=== PATIENT | female | born 1940 | race Caucasian/White ===

== ENCOUNTER → 2016-11-05 | Outpatient (CLI) | payer OTHER, BC | LOC: FIMAGING 11:59 | PROVIDERS: ATTEND Family Medicine | DX: R05 Cough (principal) ==

== ENCOUNTER → 2016-12-18 | Outpatient (CLI) | payer OTHER, BC | LOC: BMCIMAGING 14:56 | PROVIDERS: ATTEND Family Medicine | DX: Z12.31 Encounter for screening mammogram for malignant neoplasm of breast (principal) | CPT/HCPCS: G0202 ==

== ENCOUNTER → 2017-02-08 | Outpatient (CLI) | payer OTHER, BC | LOC: FIMAGING 13:13 | PROVIDERS: ATTEND Family Medicine | DX: Z13.820 Encounter for screening for osteoporosis (principal); M85.80 Other specified disorders of bone density and structure, unspecified site ==

== ENCOUNTER → 2018-01-15 | Outpatient (CLI) | payer OTHER, BC | LOC: BMCIMAGING 13:23 | PROVIDERS: ATTEND Family Medicine | DX: Z12.31 Encounter for screening mammogram for malignant neoplasm of breast (principal) ==

== ENCOUNTER 2018-07-06 14:04 | Emergency (ER) | payer OTHER, BC ==
--- NOTE | 2018-07-06 15:09 | EDPHY ---
H & P Stated Complaint: tripped on stair hitting face on cement- denies LOC Time Seen by Provider: 07/06/18 14:09 HPI/ROS: CHIEF COMPLAINT: Fall HISTORY OF PRESENT ILLNESS: 78-year-old female presents emergency department after mechanical trip and fall. She was leaving [place] with friends when she missed a step and fell landing on her face. No loss of consciousness. No chest pain or shortness of breath. No back pain. No numbness or tingling in arms or legs. Patient is complaining of an abrasion with laceration on her upper lip, pain at her right wrist, abrasion over her right knee and pain at her left ankle. Patient was otherwise well prior to the event. Patient is not anticoagulated. Patient did a yoga class this morning went for a walk prior to [place]. REVIEW OF SYSTEMS: A comprehensive 10 system review of systems was reviewed and is otherwise negative aside from elements mentioned in the history of present illness and medical decision making. PAST MEDICAL HISTORY: Takes atorvastatin for cholesterol. SOCIAL HISTORY: Here with a friend. . is on his way in. VITAL SIGNS: Reviewed by me; see NN. GENERAL: Well-developed, well-nourished, in no acute distress. HEENT: Head: Atraumatic, normocephalic. Face: 1 cm vertical laceration over the columella with abrasion to the upper lip. Abrasion on the lower lip in the midline. PERRL, EOMI, no nystagmus. Oropharynx: No intraoral trauma. No through and through lacerations. No dental trauma. No loose teeth. Occlusion is normal. Neck: Nontender to palpation, no pain with range of motion, no adenopathy. CHEST: Nontender, no subcutaneous air palpable. LUNGS: Clear to auscultation bilaterally, breath sounds are equal. CARDIAC: Regular rate and rhythm, no rubs, murmurs or gallops. ABDOMEN: Soft, nontender, nondistended, bowel sounds normal. BACK: No CVA tenderness, no spinal tenderness. EXTREMITIES: Abrasion at the right knee with full range of motion and no deformity or effusion. Right wrist: Ecchymosis, hematoma, and tenderness over the ulnar aspect of the right wrist, dorsal surface. Good range of motion. Neurovascularly intact. Left ankle: Ecchymosis and hematoma present just distal to the talus along the lateral aspect of the foot. No tenderness over the head of the 5th metatarsal. No tenderness at the medial or lateral malleoli. Neurovascularly intact. PULSES: 2+ and equal throughout. NEURO: Alert and oriented x3, cranial nerves are intact throughout, normal motor , normal sensation. SKIN: Warm and dry, no rash. - Personal History Current Tetanus Diphtheria and Acellular Pertussis (TDAP): Yes Tetanus Vaccine Date: 2011 - Medical/Surgical History Hx Asthma: No Hx Chronic Respiratory Disease: No Hx Diabetes: No Hx Cardiac Disease: No Hx Renal Disease: No Hx Cirrhosis: No Hx Alcoholism: No Hx HIV/AIDS: No Hx Splenectomy or Spleen Trauma: No Other PMH: atrial septum repair; chemo for t cell lymphoma 2010; steroids 6 weeks during 2010; stem cell transplant 2010 - Social History Smoking Status: Never smoked Constitutional: Initial Vital Signs Temperature (C) 36.6 C 07/06/18 14:12 Heart Rate 78 07/06/18 14:12 Respiratory Rate 18 07/06/18 14:12 Blood Pressure 154/81 H 07/06/18 14:12 O2 Sat (%) 97 07/06/18 14:12 O2 Delivery Mode Room Air Allergies/Adverse Reactions: ibuprofen [From Advil] Allergy (Severe, Verified 06/09/15 12:22) BLISTERS INSIDE ELBOWS/BEHIND KNEES Sulfa (Sulfonamide Antibiotics) Allergy (Severe, Verified 06/09/15 12:22) DIFFICULT BREATHING nitrofurantoin [Nitrofurantoin] Allergy (Unknown, Verified 06/09/15 12:22) MOUTH ITCHING Penicillins Allergy (Unknown, Verified 06/09/15 12:22) Hives meropenem [Meropenem] Allergy (Verified 06/09/15 12:22) CLINDAMYCIN HCL Allergy (Severe, Uncoded 06/09/15 12:22) HIVES/BLISTERS INSIDE JOINTS Home Medications: Medication Instructions Recorded Cholecalciferol Vit D3 [Vitamin D] 1,000 units PO DAILY 06/09/15 Aspirin [Aspirin 81mg (*)] 81 mg PO DAILY #30 tab 06/10/15 Atorvastatin Calcium [Lipitor] 10 mg PO DAILY #30 tab 06/10/15 Medical Decision Making - Diagnostics Imaging Results: Imaging Impressions Foot X-Ray 07/06/18 00:00 Impression: 1. There is a linear avulsion fracture off the lateral hindfoot with adjacent soft tissue swelling. 2. Dorsal chip fracture along the distal talus at the anterior capsular insertion point. LEFT FOOT (3 Views), at 2:36 PM: Again noted is the avulsion fracture off the lateral hindfoot, seen to best advantage on the first image acquired. There is also a tiny chip fracture along the talus at the anterior capsular insertion point. There is a probable unfused os tibiale externum along the medial aspect of the navicular. There is a hallux valgus configuration with degenerative osteoarthrosis consisting of joint space narrowing and some osteophyte formation. The tarsometatarsal alignment is anatomic. There is mild pes cavum. Impression: 1. There is a tiny avulsion fracture off the lateral hindfoot with associated soft tissue swelling. 2. Dorsal chip fracture along the distal talus, at the anterior capsular insertion point. Wrist X-Ray 07/06/18 14:27 Impression: Query nondisplaced dorsal triquetral fracture. Clinical correlation is suggested. If there is a high clinical concern regarding an occult fracture elsewhere, conservative management and short-term repeat radiographic follow-up in 7-14 days could be considered. Ankle X-Ray 07/06/18 14:28 Impression: 1. There is a linear avulsion fracture off the lateral hindfoot with adjacent soft tissue swelling. 2. Dorsal chip fracture along the distal talus at the anterior capsular insertion point. LEFT FOOT (3 Views), at 2:36 PM: Again noted is the avulsion fracture off the lateral hindfoot, seen to best advantage on the first image acquired. There is also a tiny chip fracture along the talus at the anterior capsular insertion point. There is a probable unfused os tibiale externum along the medial aspect of the navicular. There is a hallux valgus configuration with degenerative osteoarthrosis consisting of joint space narrowing and some osteophyte formation. The tarsometatarsal alignment is anatomic. There is mild pes cavum. Impression: 1. There is a tiny avulsion fracture off the lateral hindfoot with associated soft tissue swelling. 2. Dorsal chip fracture along the distal talus, at the anterior capsular insertion point. Procedures: Procedure: Laceration repair. The 1 cm laceration on the upper lip was anesthetized using lidocaine. The wound was cleaned and irrigated per nursing and tech documentation. Laceration was then draped and explored. There were no deep structures involved. The wound was repaired with #3 6-0 Ethilon simple interrupted sutures . The wound repair was simple. The procedure was performed by myself. Patient is aware the laceration will have a scar. ED Course/Re-evaluation: Right wrist x-ray: Possible triquetrum avulsion fracture. Left ankle x-ray left foot x-ray: Avulsion fracture off the dorsum of the talus and avulsion fracture lateral hindfoot with soft tissue swelling. Patient's laceration was repaired. She declined pain medications. Her right wrist was placed in a Velcro wrist cock-up splint and is Miranda boot was applied to the left foot/ankle Patient has seen Dr. Cunningham previously. She will follow up with 1 of the orthopedic surgeons in Dr. Cunningham group. Patient was discharged with her in good condition. Please see the discharge instructions. The head injury precautions were discussed with the . Differential Diagnosis: Differential diagnosis of this patient's fall was considered including but not limited to intracranial injury, spinal injury, extremity injury, lacerations, abrasions, fractures, dislocations, and contusions. Departure - Departure Disposition: Home, Routine, Self-Care Clinical Impression: Laceration Wrist fracture, right Qualifiers: Encounter type: initial encounter Fracture type: closed Qualified Code(s): S62.101A - Fracture of unspecified carpal bone, right wrist, initial encounter for closed fracture Ankle fracture, left Qualifiers: Encounter type: initial encounter Fracture type: closed Qualified Code(s): S82.892A - Other fracture of left lower leg, initial encounter for closed fracture Head injury Qualifiers: Encounter type: initial encounter Qualified Code(s): S09.90XA - Unspecified injury of head, initial encounter Condition: Good Instructions: Ankle Fracture (ED), Wrist Fracture in Adults (ED), Head Injury ( ED), Facial Laceration (ED) Additional Instructions: Keep the facial laceration clean and dry. Clean suture line with a mixture of hydrogen peroxide and water. Apply a thin layer of antibiotic cream. Dress wound if desired. Suture removal in 5-7 days. Watch for signs of infection. No soaking wound in water. Showers are ok. No swimming until sutures are removed. Your right wrist has a possible fracture off the triquetrum. I recommend that you wear the splint at all times with the following exceptions: You may remove the splint to ice your 1-2 days.wr risk for 20-30 minutes every 2-3 hours over the next day or 2. You may take the splint off briefly to shower or bathe. Your left ankle has 2 small avulsion fractures. I recommend you wear the Miranda boot at all times with the following exceptions: You may remove the splint to ice your ankle for 20-30 minutes every 2-3 hours for the next couple of days. You may take the splint off briefly to shower or bathe. Please use Tylenol or ibuprofen as needed for discomfort. Please follow up with orthopedic surgeon as directed. Please observe the precautions for closed head injuries. Return to the emergency department as needed. Referrals: Renee Cunningham MD [Medical Doctor] - As per Instructions (Please call [facility] to follow up with 1 of the providers regarding your wrist fracture and ankle fracture.)
[2018-07-06 15:52] VITALS: BP 146/86
== END 2018-07-06 16:06 | disposition home or self-care (01) ==
LOC: CED 14:04
PROC: 0CQ0XZZ Repair Upper Lip, External Approach (ICD-10-PCS; principal; 2018-07-06)
DX: S92.192A Other fracture of left talus, initial encounter for closed fracture (principal); S01.511A Laceration without foreign body of lip, initial encounter; S80.211A Abrasion, right knee, initial encounter; S60.211A Contusion of right wrist, initial encounter; W10.8XXA Fall (on) (from) other stairs and steps, initial encounter; Y92.22 Religious institution as the place of occurrence of the external cause
CPT/HCPCS: 12011; 73110; 73610; 73630; 99284; L3984; L4386